=== PATIENT | female | born 1965 ===

== ENCOUNTER 2025-07-12 10:40 | Outpatient (CLI) | payer OTHER ==
[~2025-07-12 10:40] MED LIST: CATAFLAM50 MG; CATAFLAM50 MG PO; METOPROLOL SUCC25 MG PO
== END 2025-07-12 10:42 | disposition home or self-care (01) ==
LOC: SONOGRAMA 10:40
PROVIDERS: ATTEND Pathology Anatomic Pathology
DX: D34 Benign neoplasm of thyroid gland (principal); E07.89 Other specified disorders of thyroid; E04.2 Nontoxic multinodular goiter